=== PATIENT | female | born 2000 | race Caucasian/White ===

== ENCOUNTER 2023-06-05 19:13 | Emergency (ER) | payer OTHER, SELFPAY ==
[2023-06-05 19:17] VITALS: BP 140/88
[2023-06-05 19:33] LABS: Urine Albumin Trace (Neg - Trace); Urine Bilirubin 3+ (Negative); Urine Character Clear (Clear); Urine Glucose Negative (Negative); Urine Ketone 2+ (Negative); Urine Leukocyte Negative (Negative); Urine Nitrite Positive (Negative); Urine Occult Blood 3+ (Negative); Urine Specific Gravity 1.025 (<1.030); Urine Urobilinogen 3+ (Neg - 1+)
[2023-06-05 19:35] LABS: Urine Color Orange
--- NOTE | 2023-06-05 19:57 | ED.GENMED ---
History of Present Illness
<Kim Mcfarlane PA-C - Last Filed: 06/06/23 00:42>
General
Chief Complaint: Urinary Symptoms
Source: patient
Exam Limitations: none
Time Seen by Provider: 06/05/23 19:41
Nursing documentation reviewed up to this point in time: agreed with
Travel History
Have you had any contact with someone who has COVID-19?: No
Do you have any symptoms of coronavirus? Fever > 100 degrees, chills, cough, shortness of breath, sore throat, loss of taste or smell, muscle aches, or headache?: No
History of Present Illness
History of Present Illness:
Patient is a 23-year-old female with history of kidney stones presenting for evaluation of acute onset left back pain. Symptoms started around 330 today have been progressively worsening. She describes a waxing and waning sharp pain in her left
flank with radiation down into her left abdomen. She states that this feels very similar to her last kidney stone in August 2022. She also endorses nausea and a few episodes of vomiting since this afternoon. Later in the afternoon she also endorses
some dysuria and hematuria.
She denies any fever, chills, diarrhea, constipation. Bowel movements have been normal.
Her last menstrual period was in March. She states that she had a medical in April and periods have not resumed yet.
Patient was seen in the emergency department in August 2022 for a kidney stone. She was discharged with Flomax and pain control. She states she never saw the stone pass but symptoms resolved within the week.
Phy Exam
<Kim Mcfarlane PA-C - Last Filed: 06/06/23 00:42>
Physical Exam
Physical Exam:
General: In no apparent distress, non-toxic
Vitals: Vital signs stable, afebrile
HEENT: Atraumatic, normocephalic; pupils equal round and reactive to light bilaterally protecting airway
Neck: appears supple, no JVD
CV: Regular rate and rhythm, heart sounds normal, no evidence of cyanosis
Resp: No evidence of respiratory distress, lungs
Abd: Soft, mildly tender in left lower quadrant without rebound or guarding, non-distended; mild left CVA tenderness
Extremities: No deformities, no evidence of cyanosis or edema
Neuro: alert and oriented x 3; grossly intact
Psych: Normal affect
Skin: Intact, no rashes
Course
<Kim Mcfarlane PA-C - Last Filed: 06/06/23 00:42>
Orders/Labs/Results
Orders:
Orders
06/05/23 19:20
Test Result ONCE
06/05/23 19:25
HCG, Urine Qualitative Screen Urgent
Date Specimen was Collected: 06/05/23
Time Specimen was Collected: 19:20
Urinalysis Reflex To Culture Urgent
Date Specimen was Collected: 06/05/23
Time Specimen was Collected: 19:20
Urine Microscopic Reflex Cult Urgent
Urine Culture Urgent
KERON Source: U
Specimen Description:
Date Specimen was Collected: 06/05/23
Time Specimen was Collected: 19:20
06/05/23 20:01
0.9% Sodium Chloride 1000 ml [Nss] 1,000 ml IV BOLUS
Ketorolac [Toradol] 15 mg IV NOW STA
US Renal With Bladder Urgent
Comment: history kidney stones
Reason For Exam: Left flank pain, hematuria
06/05/23 20:23
Complete Blood Count/With Diff Urgent
Comprehensive Metabolic Panel Urgent
Abnormal Lab Results
06/05/23 06/05/23
19:25 20:23
WBC 15.4 H 10^3/uL
(4.8-10.8)
RBC 4.08 L 10^6/uL
(4.20-5.40)
Hct 34.7 L %
(37.0-47.0)
Abs Immat Gran (auto) 0.1 H 10^3/uL
(0-0.05)
Absolute Neuts (auto) 13.6 H 10^3/uL
(1.4-6.5)
Absolute Lymphs (auto) 1.0 L 10^3/uL
(1.2-3.4)
Neutrophils % 88.3 H %
(42.2-75.2)
Lymphocytes % 6.8 L %
(20.5-51.1)
Glucose 132 H mg/dl
(70-99)
Urine Ketones 2+ A
(Negative)
Ur Occult Blood Reflex 3+ A
(Negative)
Urine Nitrite (Reflex) Positive A
(Negative)
Urine Bilirubin 3+ A
(Negative)
Urine Urobilinogen 3+ A
(Neg - 1+)
Urine RBC 80-90 A /HPF
(0-2)
Urine Bacteria (Reflex) Moderate A
(Negative)
06/05/23 20:23
06/05/23 20:23
Vital Signs
Initial and Last Documented VS:
Initial Vital Signs
Temp Pulse Resp BP Pulse Ox
98.2 F 94 18 140/88 97
06/05/23 19:17 06/05/23 19:17 06/05/23 19:17 06/05/23 19:17 06/05/23 19:17
Last Documented Vital Signs
Temp Pulse Resp BP Pulse Ox
98.2 F 93 18 117/68 96
06/05/23 19:17 06/05/23 20:47 06/05/23 20:47 06/05/23 22:00 06/05/23 22:00
Christlt;Franco Alcala, DO - Last Filed: 06/05/23 21:57>
Orders/Labs/Results
Orders:
Orders
06/05/23 19:20
Test Result ONCE
06/05/23 19:25
HCG, Urine Qualitative Screen Urgent
Date Specimen was Collected: 06/05/23
Time Specimen was Collected: 19:20
Urinalysis Reflex To Culture Urgent
Date Specimen was Collected: 06/05/23
Time Specimen was Collected: 19:20
Urine Microscopic Reflex Cult Urgent
Urine Culture Urgent
KERON Source: U
Specimen Description:
Date Specimen was Collected: 06/05/23
Time Specimen was Collected: 19:20
06/05/23 20:01
0.9% Sodium Chloride 1000 ml [Nss] 1,000 ml IV BOLUS
Ketorolac [Toradol] 15 mg IV NOW STA
US Renal With Bladder Urgent
Comment: history kidney stones
Reason For Exam: Left flank pain, hematuria
06/05/23 20:23
Complete Blood Count/With Diff Urgent
Comprehensive Metabolic Panel Urgent
Abnormal Lab Results
06/05/23 06/05/23
19:25 20:23
WBC 15.4 H 10^3/uL
(4.8-10.8)
RBC 4.08 L 10^6/uL
(4.20-5.40)
Hct 34.7 L %
(37.0-47.0)
Abs Immat Gran (auto) 0.1 H 10^3/uL
(0-0.05)
Absolute Neuts (auto) 13.6 H 10^3/uL
(1.4-6.5)
Absolute Lymphs (auto) 1.0 L 10^3/uL
(1.2-3.4)
Neutrophils % 88.3 H %
(42.2-75.2)
Lymphocytes % 6.8 L %
(20.5-51.1)
Glucose 132 H mg/dl
(70-99)
Urine Ketones 2+ A
(Negative)
Ur Occult Blood Reflex 3+ A
(Negative)
Urine Nitrite (Reflex) Positive A
(Negative)
Urine Bilirubin 3+ A
(Negative)
Urine Urobilinogen 3+ A
(Neg - 1+)
Urine RBC 80-90 A /HPF
(0-2)
Urine Bacteria (Reflex) Moderate A
(Negative)
06/05/23 20:23
06/05/23 20:23
Vital Signs
Initial and Last Documented VS:
Initial Vital Signs
Temp Pulse Resp BP Pulse Ox
98.2 F 94 18 140/88 97
06/05/23 19:17 06/05/23 19:17 06/05/23 19:17 06/05/23 19:17 06/05/23 19:17
Last Documented Vital Signs
Temp Pulse Resp BP Pulse Ox
98.2 F 93 18 117/68 96
06/05/23 19:17 06/05/23 20:47 06/05/23 20:47 06/05/23 22:00 06/05/23 22:00
<Kim Mcfarlane PA-C - Last Filed: 06/06/23 00:42>
MDM/Problems Addressed
Differential Diagnosis Includes:
Kidney stone, UTI, pyelonephritis, diverticulitis,
MDM/Problems Addressed:
Patient is a 23-year-old female with history of kidney stones presenting for acute onset left flank pain earlier today with associated nausea, vomiting. She had mild dysuria and hematuria earlier today. Patient denies any fever, chills. She is
afebrile, stable vital signs. Physical exam as documented above. Patient is nontoxic-appearing. She does have mild tenderness in the left lower quadrant with mild left CVA tenderness. Patient believes symptoms are very similar to kidney stone in
the past. Patient took 8 mg Zofran, 5 mg oxycodone that she had from previous kidney stone prior to arrival. She had very little improvement with pain. Will check basic labs, urinalysis. Given recent CAT scan and August for prior kidney stone�will
start with ultrasound of kidneys. Will give 15 IV Toradol for pain, IV fluids.
CBC shows a leukocytosis of 15.4, otherwise no clinically significant abnormalities. CMP shows no clinically significant abnormalities. Urinalysis positive for blood. There is moderate bacteria, few WBC�although there is significant amount of
squamous cells suggesting possible contamination. Urine will be sent for culture. Ultrasound is pending.
On repeat exam- patient with significant improvement in pain following toradol.
Given leukocytosis�will discharge with pain control, Flomax, antibiotics to cover possible infection. Very close return precaution discussed with patient she will return with any fever, chills, worsening in symptoms.
Chronic conditions affecting care:
Nephrolithiasis
Acute Exacerbation and/or Progression of Chronic Illness:
Kidney stones
<Kim Mcfarlane PA-C - Last Filed: 06/06/23 00:42>
*Radiology
Radiology exam reviewed: radiology read reviewed
*Pulse Oximetry
Patient hypoxic: no
*Wharfmaster Interpretation
Rate: Wharfmaster- N/A
*Critical Care Note
Total Time (30-74mins, 75-104mins- exclusive of procedures): Not Applicable
ED Attending Note
<Kim Mcfarlane PA-C - Last Filed: 06/06/23 00:42>
-
Portions of this chart may have been created with voice recognition software.� Occasional wrong word or��sound alike� substitutions may have occurred due to the inherent limitations of voice recognition software.
<Franco Alcala DO - Last Filed: 06/05/23 21:57>
ED Attending Note
Patient seen and examined by attending physician: Yes
I performed the substantive portion of visit, reviewed & personally made and approve the management plan that is documented in note by myself or SHELBY.: Yes
ED Attending Note:
Seen with PA examined independently 23-year-old female prior kidney stones and [address] presents with left flank pain hematuria vomited x 1 afebrile white count noted urine noted culture pending reviewed indication for imaging will proceed with
ultrasound will try to limit her radiation
Discharge Plan
Departure
Patient Disposition: Home (Routine Discharge)
Date of Disposition: 06/05/23
Time of Disposition: 23:24
Patient with high blood pressure during this ER visit?: No
Condition: Good
Covid-19: Not Applicable
Discharge Problem:
Left nephrolithiasis
Instructions: Urinary Tract Infection, Adult (DC), Kidney Stone, Adult ED
Prescriptions:
New
cefdinir 300 mg capsule
300 mg PO BID 10 Days Qty: 20 0RF
tamsulosin [Flomax] 0.4 mg capsule
0.4 mg PO DAILY Qty: 7 0RF
oxycodone-acetaminophen [Percocet] 5-325 mg tablet
1 tab PO Q8H PRN (Reason: Pain) Qty: 10 0RF
ondansetron 4 mg tablet,disintegrating
4 mg PO TIDPRN PRN (Reason: nausea/vomiting) Qty: 10 0RF
No Action
oxycodone 5 mg tablet
5 mg PO TID PRN (Reason: Pain) Qty: 10 0RF
tamsulosin [Flomax] 0.4 mg capsule
0.4 mg PO DAILY Qty: 7 0RF
Rx Instructions:
Patient should take 0.4 mg by mouth once daily until kidney stone passes
ondansetron 4 mg tablet,disintegrating
4 mg PO TIDPRN PRN (Reason: nausea/vomiting) Qty: 20 0RF
Referrals:
Kyaw Yip MD [Active] - Follow up in 1 week
Jack Melgoza MD [Family Provider] -
Stand Alone Forms: Return to Work
Activity Restrictions/Additional Instructions:
- Return to the emergency department with any fever, chills, intractable nausea/vomiting, severe abdominal pain, worsening current symptoms, or any other concerns
-You can take ibuprofen as needed for pain. A prescription for Percocet has been sent that you can take for any severe pain. This may cause drowsiness.
-It is important to stay well hydrated.
-You should follow-up with urology for further evaluation/treatment
Interventions
Interventions:
*Risk Screen - Suicide Last Done: 06/05/23 20:18
*General Assessment Last Done: 06/05/23 19:17
*Neglect/Abuse Screening Last Done: 06/05/23 20:18
ED- Fall Risk Assessment Last Done: 06/05/23 20:49
*ED COVID-19 Vaccine History Last Done: 06/05/23 19:17
*Nursing Disposition Last Done: 06/05/23 23:45
ED-Female Genitourinary Assessment Last Done: 06/05/23 20:49
Discharge Date and Time
Discharge Date/Time: 06/05/23 23:45
[2023-06-05 20:11] LABS: Urine Mucus Moderate; Urine Squamous Cell >30 /LPF (Few)
[2023-06-05 20:12] LABS: Urine Amorphous Seen
[2023-06-05 20:17] VITALS: BMI 23.3
[2023-06-05 20:19] LABS: Urine Bacteria Moderate (Negative); Urine Red Blood Cell 80-90 /HPF (0-2)
[2023-06-05] MEDS: NSS 1000 IV (20:25)
[2023-06-05] MEDS: TORADOL 15 MG IV (20:25)
[2023-06-05 20:27] VITALS: BP 122/75
[2023-06-05 20:38] LABS: % Basophils 0.3 % (0-2); % Immature Granulocytes 0.5 % (0-0.5); % Lymphocytes 6.8 % (20.5-51.1); % Monocytes 4.1 % (1.7-9.3); % Neutrophils 88.3 % (42.2-75.2); Absolute Immature Granulocytes 0.1 10^3/uL (0-0.05); Absolute Monocytes 0.6 10^3/uL (0.1-0.6); Absolute Neutrophils 13.6 10^3/uL (1.4-6.5); Hematocrit 34.7 % (37.0-47.0); Hemoglobin 12.6 g/dL (12.0-16.0); Mean Corp Hgb Conc. 36.3 g/dL (33.0-37.0); Mean Corpuscular Hgb 30.9 pg (27.0-31.0); Mean Platelet Volume 9.3 fL (7.4-10.4); Nucleated Red Blood Cells % 0 %; Platelet Count 272 10^3/uL (130-400); Red Blood Cell Count 4.08 10^6/uL (4.20-5.40); White Blood Cell Count 15.4 10^3/uL (4.8-10.8)
[2023-06-05 20:42] LABS: HCG, Urine Qualitative Screen Negative
[2023-06-05 20:51] LABS: ALT (SGPT) 13 U/L (0-35); AST (SGOT) 18 U/L (14-36); Albumin 4.4 g/dl (3.5-5.0); Alkaline Phosphatase 84 U/L (38-126); Blood Urea Nitrogen 16 mg/dl (7-17); Calcium 9.7 mg/dl (8.4-10.2); Carbon Dioxide 23 mmol/L (22-30); Chloride 102 mmol/L (98-107); Estimated Creatinine Clearance 90 ml/min; Glucose 132 mg/dl (70-99); Potassium 3.9 mmol/L (3.5-5.1); Sodium 136 mmol/L (135-145); Total Bilirubin 0.6 mg/dl (0.2-1.3); Total Protein 6.8 g/dl (6.3-8.2); eGFR > 60.00
[2023-06-05 21:00] VITALS: BP 115/69
[2023-06-05 22:00] VITALS: BP 117/68
== END 2023-06-05 23:45 | disposition home or self-care (01) ==
LOC: EMR 19:13
PROVIDERS: Physician Assistant; EMERGENCY PHYSICIAN Emergency Medicine; FAMILY PHYSICIAN Internal Medicine Sports Medicine
DX: N20.0 Calculus of kidney (principal); Z87.442 Personal history of urinary calculi
CPT/HCPCS: 99284; 96374; 96361; 76770; 80053; 81003; 81015; 81025; 85025; 87086